=== PATIENT | female | born 1930 | race Caucasian/White ===

== ENCOUNTER 2017-11-16 07:30 | Inpatient (IN) ==
[2017-11-16] MEDS ORDERED: Lido/Epi/Tetra Gel 2 ML SYRINGE TP ONE (08:09)
[2017-11-16] MEDS ORDERED: Bacitracin/Polymyxin B PACKET TP ONE (08:09)
[2017-11-16] MEDS ORDERED: Lidocaine/EPI 1:100k 2% 20 ML VIAL INFILT ONE (08:10)
--- NOTE | 2017-11-16 09:26 | Emergency Department Note ---
Disposition Clinical Impression: Elevated troponin, Bradycardia Concussion without loss of consciousness Qualifiers: Encounter type: initial encounter Qualified Code(s): S06.0X0A - Concussion without loss of consciousness, initial encounter Fall Qualifiers: Encounter type: initial encounter Qualified Code(s): W19.XXXA - Unspecified fall, initial encounter Traumatic hematoma of left knee Qualifiers: Encounter type: initial encounter Qualified Code(s): S80.02XA - Contusion of left knee, initial encounter Scalp hematoma Qualifiers: Encounter type: initial encounter Qualified Code(s): S00.03XA - Contusion of scalp, initial encounter Disposition: Admitted As Inpatient Condition: Fair Referrals: Veto Rosa Jr, MD [Primary Care Provider] - Fall HPI - General Chief Complaint: ED Fall Stated Complaint: fell Time Seen by Provider: 11/16/17 07:47 Source: patient, family, EMS Mode of arrival: EMS Limitations: no limitations Nursing Notes Reviewed: Yes Vital Signs Reviewed: Yes - History of Present Illness HPI Narrative: Patient states that she lost her balance when she missed the first step. This caused her to fall down four steps. She does not remember what hit the ground first, but states that she landed on her right side and dry calls hitting her head on the wall. She denies loss of consciousness, dizziness, vertigo, chest pain, shortness of breath, abdominal pain, neck pain, back pain, paresthesias or weakness in the extremities. She denies changes in vision, epistaxis, nausea , vomiting, recent illness or recent changes in medications. She complains of soreness in the back of her head where she has a laceration. She denies pain anywhere else at this time, but states that her knee is very swollen. Pt Subjective Complaint: fall Onset (ago): Just [employer] Fall From: standing, down stairs (#) (4 per patient) Fall Witnessed: no (Sister states, "I heard her fall but didn't see it." She describes that the patient was lying on the bottom step on her right side with her head against the wall. ) Place Fall Occurred: home Loss of Consciousness: none Prolonged Down Time?: no Symptoms Prior to Fall: none Context: tripped/slipped Location of injury: head Location of injury - extremities: Left: knee Severity: mild Quality: dull Associated symptoms (after fall): Denies: headache, neck pain, numbness, weakness, chest pain, shortness of breath, abdominal pain, unable to walk ("Got up after she fell and then walked to the cot when EMS arrived". Per sister and patient ), lightheaded, vertigo, confusion - Related Data Home Medications Medication Instructions Recorded Confirmed Atorvastatin [Lipitor] 40 mg PO DAILY 11/16/17 11/16/17 Omeprazole [PriLOSEC] 20 mg PO DAILY 11/16/17 11/16/17 Pregabalin [Lyrica] 50 mg PO BID 11/16/17 11/16/17 Allergies Allergy/AdvReac Type Severity Reaction Status Date / Time No Known Allergies Allergy Verified 11/16/17 07:43 All systems ED: reviewed and negative except as stated. Review of Systems: As Per HPI Constitutional: Denies: fever, chills, weakness Eyes: Denies: eye pain, vision change ENT ED: Denies: throat pain, epistaxis, congestion, dysphagia Cardiovascular: Denies: chest pain, palpitations, dyspnea on exertion, orthopnea , edema, syncope Respiratory: Denies: cough, dyspnea, wheezes, hemoptysis, stridor Gastrointestinal: Denies: abdominal pain, nausea, vomiting, diarrhea Genitourinary: Denies: dysuria, hematuria Musculoskeletal: Reports: as per HPI, joint swelling (Left knee). Denies: back pain, neck pain, arthralgia Neurological: Denies: headache, weakness, numbness, paresthesias, confusion, abnormal gait, vertigo Hematological/Lymphatic: Denies: easy bleeding (Patient states, "I am supposed to take an aspirin every day but I do not." She also states that she used to be on blood thinners, but her doctor took her off these last year), easy bruising Fall PMH - Past Medical History Medical history: Reports: cancer (Melanoma on the scalp removed many years ago) , GERD, hyperlipidemia Surgical history: Reports: non-contributory Psychiatric history: Reports: no psych history - Social History Smoking Status: Never smoker Alcohol use: Reports: none Drug use: Reports: none Physical Exam - General Limitations: no limitations General appearance: alert, in no apparent distress - Head Head exam: normocephalic, other - Expanded Head Exam Head exam physicial: Present: laceration, contusion, hematoma. Absent: abrasion , raccoon eyes, Cardoza's sign, tenderness of temporal artery, CSF rhinorrhea, CSF otorrhea - Eye Eye exam: Present: normal appearance, PERRL, EOMI. Absent: scleral icterus, conjunctival injection, nystagmus, miosis, mydriasis, periorbital swelling, periorbital tenderness - ENT ENT exam: mucous membranes moist - Neck Neck exam: Present: normal inspection, trachea midline, tenderness - Expanded Neck Exam Neck exam focused ED: Present: midline tenderness (Mild, mid), paraspinal tenderness ( mild, bilateral). Absent: tenderness (other), tracheal deviation, anterior neck swelling, JVD, carotid bruit - Chest Chest inspection: Present: normal inspection, symmetric chest wall rise. Absent : tenderness - Respiratory Respiratory exam: Present: normal lung sounds bilaterally. Absent: respiratory distress, wheezes, stridor, accessory muscle use, prolonged expiratory phase - Cardiovascular Cardiovascular exam: Present: regular rate, normal rhythm, systolic murmur - Abdominal Exam Abdominal exam: Present: soft, Non-Tender. Absent: distention, guarding, rebound, rigidity, trauma, mass - Extremities Exam Extremities exam: Present: full ROM, tenderness (Mild, left anterior knee), normal capillary refill, joint swelling (Moderate left anterior knee). Absent: pedal edema - Expanded Lower Extremity Exam Hip/Pelvis exam: Present: full ROM (No pain with passive range of motion of hips bilaterally), pelvis stable. Absent: tenderness, deformity, crepitus, external rotation, internal rotation, shortening Upper leg exam: Absent: tenderness Knee exam: Present: normal inspection, full ROM, tenderness (Mild left anterior) , swelling (Moderate left anterior), ecchymosis (Mild to moderate left anterior) , knee extension intact. Absent: deformity, crepitus, dislocation, erythema, effusion, anterior drawer sign, posterior draw sign, pain with valgus, laxity with valgus, pain with varus, laxity with varus Lower leg exam: Present: normal inspection, abrasion (Superficial, 3 cm x 3 mm right mid anterior tibial area). Absent: tenderness, swelling Ankle exam: Present: normal inspection, full ROM, swelling (Mild bilateral symmetric nonpitting). Absent: tenderness Foot/toe exam: Present: normal inspection, full ROM, swelling (Mild bilateral nonpitting symmetric). Absent: tenderness Neurovascular/Tendon exam: Present: normal capillary refill, normal fine/light touch. Absent: pulse deficit, motor deficit, sensory deficit, tendon deficit, extremity cold to touch, pallor, foot drop, significant pain with passive ROM of distal joint Gait: not tested/not observed - Back Exam Back exam: Present: normal inspection. Absent: tenderness, CVA tenderness (R), CVA tenderness (L), paraspinal tenderness, vertebral tenderness - Neurological Exam Neurological exam: Present: alert, CN II-XII intact. Absent: oriented X3 ( Intermittently confused about the year), motor sensory deficit - Psychiatric Psychiatric exam: Present: normal affect, normal mood, other (Very pleasant, conversant, jovial) - Skin Skin exam: Present: warm, dry, intact, normal color Course Course Narrative: Patient fell down four steps when she missed the first step and lost her balance. She had no prodrome of dizziness, vertigo, chest pain, shortness of breath, paresthesias or weakness. She does not have frequent falls. She has had no recent illnesses or changes in medications. She struck the back of her head but did not lose consciousness. She denies headache and has had no vomiting, no change in mental status. Patient has a contusion and hematoma on the vertex of the head and a second hematoma with lac on the left occipital area. The laceration is 2.5cm x 1cm x 0.5cm. There is no active bleeding, no crepitus or step-offs. She has mild tenderness to palpation in these areas. Neck is minimally tender also. She has a large hematoma on the anterior left knee. The knee is stable and she has FAROM. She denies pain in the knee and states, "It's not broke because I walked on it and I can bend it." CT head and cervical spine ordered. Xray of knee ordered. LET, Tylenol and ice pack ordered. - Reevaluation(s) Reevaluation #1: BP improved. Patient resting comfortably. Time: 08:50 Reevaluation #2: Discussed results of scans and xrays with patient. She was feeling better and wanted to ambulate to the restroom again. Nurse assisted patient to bedside commode. When finished, patient had sudden onset of severe left hip pain and trouble getting back into the bed. She became very nauseated and had dry heaves. She was diaphoretic. BP decreased to 111/52 and heart rate 49. Accu check was 114, zofran, IV fluids and EKG ordered. Dr. Ludwig was at bedside during this event. He was preparing to do the FAST U/S. Time: 09:40 Reevaluation #3: Patient had symptomatic resolution within minutes - prior to receiving any meds or fluids. Accu check normal. EKG shows sinus bradycardia with T wave inversions anteriorly. We do not have an old EKG for comparison. CTA Chest and CTA Abd/Pelvis ordered. FAST exam normal. Patient has no complaints at this time. Still able to move hips passively without eliciting any pain. Time: 10:33 Additional Reevaluation(s): Patient's CTA Chest, Abd/ Pelvis all normal per radiologist with the exception of coarse pelvic calcifications and a splenic cyst or hemangioma. CT of the hip shows osteopenia with no fracture. Patient denies chest pain, pressure, tightness, heaviness, dyspnea, arm pain, paraesthesias. She denies known hx of CAD. Her troponin is elevated and she has twave inversions on her EKG. We have no old EKG for comparison. This coupled with the patient's episode of nausea / vomiting, diaphoresis and transient pain in the absence of hip injury or other abnormal findings on CT warrant admission. Hospitalist paged. Patient accepted for admission. NO ASPIRIN GIVEN DUE TO PATIENT'S TRAUMA THIS MORNING WITH HEAD INJURY AND LARGE KNEE HEMATOMA. Plan to hold aspirin discussed with the hospitalist and attending. They are in agreement. Vital Signs Temperature 97.9 F 11/16/17 07:31 Pulse Rate 63 11/16/17 07:31 Respiratory Rate 18 11/16/17 07:31 Blood Pressure 162/77 11/16/17 07:31 O2 Sat by Pulse Oximetry 99 11/16/17 07:31 Temperature 97.9 F 11/16/17 07:31 Pulse Rate 63 11/16/17 07:31 Respiratory Rate 18 11/16/17 07:31 Blood Pressure 162/77 11/16/17 07:31 O2 Sat by Pulse Oximetry 99 11/16/17 07:31 Oxygen Delivery Oxygen Delivery Room Air Procedures - Laceration Laceration 1 Site: scalp Side (If applicable): left Description: linear Depth: simple, single layer Local Anesthetic: lidocaine 1%, with epi, other anesthetic (LET) Amount of Anesthesia Used (mL): 3 Pre-repair: wound explored, irrigated extensively, deep structures intact (No FB , no palpable fracture or step off, 1cm lac of galeal membrane, no active bleeding) Skin layer closed with: lenny Number of sutures/lenny: 6 Fall - Medical Records Medical records reviewed: Yes I reviewed the patient's medical records. - Lab Data Lab results reviewed: Yes I reviewed the patient's lab results. Lab results narrative: Laboratory Last Values WBC 11.7 K/mcL (4.3-11.1) H 11/16/17 10:20 RBC 3.28 M/mcL (3.82-4.97) L 11/16/17 10:20 Hgb 10.8 g/dL (11.5-15.4) L 11/16/17 10:20 Hct 33.0 % (35.3-44.9) L 11/16/17 10:20 MCV 100.6 fL (83.0-100.0) H 11/16/17 10:20 MCH 32.9 pg (28.0-33.3) 11/16/17 10:20 MCHC 32.7 g/dL (31.6-35.5) 11/16/17 10:20 RDW 13.4 % (11.5-14.5) 11/16/17 10:20 Plt Count 179 K/mcL (140-400) 11/16/17 10:20 MPV 11.4 fL (9.4-12.4) 11/16/17 10:20 Immature Gran % 0.4 % (0-4) 11/16/17 10:20 Seg Neutrophils % 79.6 % 11/16/17 10:20 Lymphocytes % 12.8 % 11/16/17 10:20 Monocytes % 6.7 % 11/16/17 10:20 Eosinophils % 0.2 % 11/16/17 10:20 Basophils % 0.3 % 11/16/17 10:20 Neutrophils # 9.3 K/mcL (1.6-8.9) H 11/16/17 10:20 Lymphocytes # 1.5 K/mcL (0.6-4.6) 11/16/17 10:20 Monocytes # 0.8 K/mcL (0.0-1.3) 11/16/17 10:20 Eosinophils # 0.0 K/mcL (0.0-0.6) 11/16/17 10:20 Basophils # 0.0 K/mcL (0.0-0.2) 11/16/17 10:20 PT 11.2 Seconds (9.4-12.1) 11/16/17 10:20 INR 1.0 11/16/17 10:20 APTT 33.6 Seconds (26.0-36.0) 11/16/17 10:20 POC Glucose 114 mg/dL (70-99) H 11/16/17 09:41 Urine Color Yellow (Yellow) 11/16/17 10:09 Urine Clarity Clear (Clear) 11/16/17 10:09 Urine pH 6.0 pH Units (5.0-8.0) 11/16/17 10:09 Ur Specific Nahma 1.014 (1.010-1.025) 11/16/17 10:09 Urine Protein Negative mg/dL (Neg-Trace) 11/16/17 10:09 Urine Glucose (UA) Normal mg/dL (Normal) 11/16/17 10:09 Urine Ketones Negative mg/dL (Negative) 11/16/17 10:09 Urine Blood Negative (Negative) 11/16/17 10:09 Urine Nitrite Negative (Negative) 11/16/17 10:09 Urine Bilirubin Negative (Negative) 11/16/17 10:09 Urine Urobilinogen Normal mg/dL (Normal) 11/16/17 10:09 Ur Leukocyte Esterase Negative (Negative) 11/16/17 10:09 Ur Culture Indicated? NO (NO) 11/16/17 10:09 - Radiology Data Radiology results reviewed: Yes I reviewed the patient's radiology results. - EKG Data EKG attestation: Yes I reviewed and interpreted this EKG. EKG shows normal: sinus rhythm Rate: bradycardia Rhythm: NSR T wave inversions noted in: v1, v2, v3, v4 When compared to previous EKG there are: previous EKG unavailable Interpretation: nonspecific ST-T wave changes
[2017-11-16] MEDS ORDERED: Ondansetron ODT 4 MG TAB.RAPDIS SL ONE (09:39)
[2017-11-16] MEDS ORDERED: 0.9 % Sodium Chloride 1,000 ML IVC ONE (09:39)
[2017-11-16] MEDS ORDERED: Isovue-370 500 ML INFUS..BTL IV ONE (09:56)
[2017-11-16 10:37] LABS: Basophils % 0.3 %; Eosinophils % 0.2 %; Hemoglobin 10.8 g/dL (11.5-15.4); Immature Granulocytes % 0.4 % (0-4); Lymphocytes # 1.5 K/mcL (0.6-4.6); Lymphocytes % 12.8 %; Mean Corpuscular HGB Conc 32.7 g/dL (31.6-35.5); Mean Corpuscular Hemoglobin 32.9 pg (28.0-33.3); Mean Corpuscular Volume 100.6 fL (83.0-100.0); Mean Platelet Volume 11.4 fL (9.4-12.4); Monocytes # 0.8 K/mcL (0.0-1.3); Monocytes % 6.7 %; Neutrophils # 9.3 K/mcL (1.6-8.9); Platelet Count 179 K/mcL (140-400); Red Blood Count 3.28 M/mcL (3.82-4.97); Red Cell Distribution Width 13.4 % (11.5-14.5); Segmented Neutrophils % 79.6 %
[2017-11-16 10:42] LABS: Prothrombin Time 11.2 Seconds (9.4-12.1)
[2017-11-16 10:44] LABS: Activated Partial Thrombo Time 33.6 Seconds (26.0-36.0)
[2017-11-16 10:49] LABS: Bilirubin,Urine Negative (Negative); Blood,Urine Negative (Negative); Clarity,Urine Clear (Clear); Color,Urine Yellow (Yellow); Glucose,Urine (UA) Normal (Normal); Ketones,Urine Negative (Negative); Leukocyte Esterase,Urine Negative (Negative); Nitrite,Urine Negative (Negative); Protein,Urine Negative (Neg-Trace); Specific Gravity,Urine 1.014 (1.010-1.025); Urobilinogen,Urine Normal (Normal)
--- NOTE | 2017-11-16 11:25 | Emergency Department Note ---
Disposition Clinical Impression: Elevated troponin Fall Qualifiers: Encounter type: initial encounter Qualified Code(s): W19.XXXA - Unspecified fall, initial encounter Disposition: Still a Patient Condition: Fair Referrals: Veto Rosa Jr, MD [Primary Care Provider] - Forms: ED Satisfaction Letter General Adult HPI - General Chief complaint: ED Fall Stated complaint: fell Time Seen by Provider: 11/16/17 07:47 Source: patient, family, EMS Mode of arrival: EMS Limitations: no limitations Nursing Notes Reviewed: Yes Vital Signs Reviewed: Yes - History of Present Illness Pain Scale: 1 - Related Data Home Medications Medication Instructions Recorded Confirmed Atorvastatin [Lipitor] 40 mg PO DAILY 11/16/17 11/16/17 Omeprazole [PriLOSEC] 20 mg PO DAILY 11/16/17 11/16/17 Pregabalin [Lyrica] 50 mg PO BID 11/16/17 11/16/17 Allergies Allergy/AdvReac Type Severity Reaction Status Date / Time No Known Allergies Allergy Verified 11/16/17 07:43 Constitutional: Denies: fever, chills, weakness Eyes: Denies: eye pain, vision change ENT ED: Denies: throat pain, epistaxis, congestion, dysphagia Cardiovascular: Denies: chest pain, palpitations, dyspnea on exertion, orthopnea , edema, syncope Respiratory: Denies: cough, dyspnea, wheezes, hemoptysis, stridor Gastrointestinal: Denies: abdominal pain, nausea, vomiting, diarrhea Genitourinary: Denies: dysuria, hematuria Musculoskeletal: Reports: as per HPI, joint swelling (Left knee). Denies: back pain, neck pain, arthralgia Neurological: Denies: headache, weakness, numbness, paresthesias, confusion, abnormal gait, vertigo Hematological/Lymphatic: Denies: easy bleeding (Patient states, "I am supposed to take an aspirin every day but I do not." She also states that she used to be on blood thinners, but her doctor took her off these last year), easy bruising Past Medical History - Past Medical History Medical history: Reports: cancer (Melanoma on the scalp removed many years ago) , GERD, hyperlipidemia Surgical history: Reports: non-contributory Psychiatric history: Reports: no psych history - Social History Smoking Status: Never smoker Smokeless Tobacco Status: No Alcohol use: Reports: none Drug use: Reports: none Physical Exam - General Limitations: no limitations General appearance: alert, in no apparent distress Course Vital Signs Temperature 97.9 F 11/16/17 07:31 Pulse Rate 63 11/16/17 07:31 Respiratory Rate 18 11/16/17 07:31 Blood Pressure 162/77 11/16/17 07:31 O2 Sat by Pulse Oximetry 99 11/16/17 07:31 Temperature 97.9 F 11/16/17 07:31 Pulse Rate 50 11/16/17 10:00 Respiratory Rate 17 11/16/17 10:00 Blood Pressure 116/57 11/16/17 10:00 O2 Sat by Pulse Oximetry 99 11/16/17 10:00 Oxygen Delivery Oxygen Delivery Room Air Medical Decision Making - Lab Data Result diagrams: 11/16/17 10:20 Lab Results 11/16/17 11/16/17 11/16/17 Range/Units 09:41 10:09 10:20 WBC 11.7 H (4.3-11.1) K/mcL RBC 3.28 L (3.82-4.97) M/mcL Hgb 10.8 L (11.5-15.4) g/dL Hct 33.0 L (35.3-44.9) % MCV 100.6 H (83.0-100.0) fL MCH 32.9 (28.0-33.3) pg MCHC 32.7 (31.6-35.5) g/dL RDW 13.4 (11.5-14.5) % Plt Count 179 (140-400) K/mcL MPV 11.4 (9.4-12.4) fL Immature Gran % 0.4 (0-4) % Seg Neutrophils % 79.6 % Lymphocytes % 12.8 % Monocytes % 6.7 % Eosinophils % 0.2 % Basophils % 0.3 % Neutrophils # 9.3 H (1.6-8.9) K/mcL Lymphocytes # 1.5 (0.6-4.6) K/mcL Monocytes # 0.8 (0.0-1.3) K/mcL Eosinophils # 0.0 (0.0-0.6) K/mcL Basophils # 0.0 (0.0-0.2) K/mcL PT (9.4-12.1) Seconds INR APTT (26.0-36.0) Seconds POC Glucose 114 H (70-99) mg/dL Troponin I (< 0.04) ng/mL Urine Color Yellow (Yellow) Urine Clarity Clear (Clear) Urine pH 6.0 (5.0-8.0) pH Units Ur Specific Howes 1.014 (1.010-1.025) Urine Protein Negative (Neg-Trace) mg/dL Urine Glucose (UA) Normal (Normal) mg/dL Urine Ketones Negative (Negative) mg/dL Urine Blood Negative (Negative) Urine Nitrite Negative (Negative) Urine Bilirubin Negative (Negative) Urine Urobilinogen Normal (Normal) mg/dL Ur Leukocyte Esterase Negative (Negative) Ur Culture Indicated? NO (NO) Blood Type Antibody Screen 11/16/17 11/16/17 11/16/17 Range/Units 10:20 10:20 10:20 WBC (4.3-11.1) K/mcL RBC (3.82-4.97) M/mcL Hgb (11.5-15.4) g/dL Hct (35.3-44.9) % MCV (83.0-100.0) fL MCH (28.0-33.3) pg MCHC (31.6-35.5) g/dL RDW (11.5-14.5) % Plt Count (140-400) K/mcL MPV (9.4-12.4) fL Immature Gran % (0-4) % Seg Neutrophils % % Lymphocytes % % Monocytes % % Eosinophils % % Basophils % % Neutrophils # (1.6-8.9) K/mcL Lymphocytes # (0.6-4.6) K/mcL Monocytes # (0.0-1.3) K/mcL Eosinophils # (0.0-0.6) K/mcL Basophils # (0.0-0.2) K/mcL PT 11.2 (9.4-12.1) Seconds INR 1.0 APTT 33.6 (26.0-36.0) Seconds POC Glucose (70-99) mg/dL Troponin I 0.05 H* (< 0.04) ng/mL Urine Color (Yellow) Urine Clarity (Clear) Urine pH (5.0-8.0) pH Units Ur Specific Howes (1.010-1.025) Urine Protein (Neg-Trace) mg/dL Urine Glucose (UA) (Normal) mg/dL Urine Ketones (Negative) mg/dL Urine Blood (Negative) Urine Nitrite (Negative) Urine Bilirubin (Negative) Urine Urobilinogen (Normal) mg/dL Ur Leukocyte Esterase (Negative) Ur Culture Indicated? (NO) Blood Type B POSITIVE Antibody Screen NEGATIVE Attestation Statement - Attestation Attestation: I, Rob Ludwig, examined this patient and my medical decision-making was reviewed with the LUMP ROLLER/PA/Advanced Practice Nurse/Resident Physician. I agree with the documented findings, disposition and treatment plan as described except to the extent set forth below. 87-year-old female presents emergency Department with concerns of evaluation after fall. Patient states she slipped and missed the first step as she was going down the stairs, she fell about 4 stairs. She struck her head and her left knee. Patient has laceration to the occiput and significant contusion with swelling and ecchymosis to the left anterior knee. Patient pain was well controlled in the emergency Department with IV pain medication. She denies chest pain or shortness of breath. During the evaluation the patient started to vomit, this occurred after the patient tried to ambulate to the bathroom. Patient became bradycardic to a rate of 48. Laboratory evaluation was obtained in addition to a CTA of the chest abdomen pelvis for further evaluation of trauma. Imaging and laboratory results and disposition are pending at this time.
[2017-11-16 11:33] LABS: Alanine Aminotransferase 12 Units/L (7-52); Albumin 3.5 g/dL (3.5-5.7); Albumin/Globulin Ratio 1.6 (1.1-2.2); Alkaline Phosphatase 76 Units/L (34-104); Aspartate Amino Transferase 14 Units/L (13-39); BUN/Creatinine Ratio 23 (6-26); Bilirubin,Total 0.6 mg/dL (0.3-1.0); Blood Urea Nitrogen 18 mg/dL (8-23); Calcium 8.7 mg/dL (8.6-10.3); Carbon Dioxide 28 mEq/L (23-29); Chloride 109 mEq/L (98-107); Globulin 2.2 g/dL (2.4-3.5); Glucose 118 mg/dL (70-105); Osmolality,Calculated 297 (280-300); Sodium 142 mEq/L (136-145); Total Protein 5.7 g/dL (6.4-8.9); eGFR For African Americans > 60 (> 60); eGFR For Non-African Americans > 60 (> 60)
[2017-11-16 11:34] LABS: Potassium 3.7 mEq/L (3.5-5.1)
[2017-11-16] MEDS ORDERED: Naloxone 0.4 MG/ML INJ IVP PRN (13:53)
[2017-11-16] MEDS ORDERED: *HR* HYDROcodone/Acet 5/325 mg TABLET PO PRN (13:53)
--- NOTE | 2017-11-16 14:12 | Internal Med History&Physical ---
<Jean CarlosMiguel Nevarez - Last Filed: 11/16/17 14:44> Date of Encounter: 11/16/17 Time of Encounter: 13:00 Internal Medicine - H&P: HPI Chief complaint: Fall Admitted From: Emergency Dept Plans for Post Hospital Care: Home History of present illness: Ms. Fischer is a 87 year old female w/PMH of melanoma, GERD, and HLD presents from the ED w/CC of fall that occurred this morning. Pt. states she was coming down stairs and lost her footing and fell down four stairs striking the occipital portion of her head and her left knee. Occiput has laceration and ecchymosis and edema to left knee. Pt. denies becoming syncopal or hx of falls. Reports nausea in ED. Patient denies recent illness, fever, chills, vomiting, changes in vision, headache, CP, SOB, abdominal pain, diarrhea, constipation, dizziness, lightheadedness, numbness, tingling, unusual bleeding, pre-syncope, or syncope. Past Med Surg Social Fam HX - Past Medical History Source: patient, old records reviewed, obtained from family Medical history: cancer (Melanoma on the scalp removed many years ago), GERD, hyperlipidemia Psychiatric history: no psych history - Past Surgical History Surgical History: cancer surgery (Skin cancer surgery) - Social History Smoking Status: Never smoker Smokeless Tobacco Status: No Alcohol use: none Drug use: none Current living situation: Home, With Family Activity Level: Independent ambulation Recent Out of Country Travel Within the Last 8 Weeks: No Exposure or Possible Exposure to Illness During Travel: No - Family History Father Race: Family Member Ethnicity: Non- Living Status: Age at : 88 Cause of : Alzheimer's disease Hx Family Neurologic Disorders: Yes (Alzheimer's disease) Mother Race: Family Member Ethnicity: Non- Living Status: Age at : 95 Cause of : CHF Hx Family Cardiac Disorders: Yes (CHF) Brother Race: Family Member Ethnicity: Non- Living Status: Age at : 69 Cause of : Pancreatic cancer Hx Family Cancer: Yes (Pancreatic) Sister Race: Family Member Ethnicity: Non- Living Status: Still Living Hx Family Cardiac Disorders: Yes (HLD) Hx Family Cancer: Yes (Melanoma) Internal Medicine - H&P: Meds Atorvastatin [Lipitor] 40 mg PO DAILY 11/16/17 [History] Omeprazole [PriLOSEC] 20 mg PO DAILY 11/16/17 [History] Pregabalin [Lyrica] 50 mg PO BID 11/16/17 [History] 3 Allergy/AdvReac Type Severity Reaction Status Date / Time No Known Allergies Allergy Verified 11/16/17 07:43 All Systems PM: A 10-system review of systems was performed and is negative for pertinent findings except as documented above in the HPI. - Constitutional Constitutional: as per HPI, no chills, no fever(s), no night sweats - EENT Eyes: no change in vision, no discharge, no pain, no photophobia Ears: no ear discharge, no ear pain, no tinnitus Nose, mouth and throat: no dysphagia, no nasal discharge, no neck pain, no sore throat - Breasts Breasts: as per HPI - Cardiovascular Cardiovascular ROS IM: as per HPI, irregular heart rhythm (Bradycardia), no chest pain, no diaphoresis, no dyspnea, no lightheadedness, no palpitations, no syncope - Respiratory Respiratory: no cough, no dyspnea, no wheezing, no excessive phlegm production - Gastrointestinal Gastrointestinal: no abdominal pain, no diarrhea, no hematemesis, no hematochezia, no melena, no nausea, no vomiting - Genitourinary Genitourinary: no change in urinary stream, no dysuria, no flank pain, no hematuria Menstruation: as per HPI - Musculoskeletal Musculoskeletal ROS IM: no numbness, no tingling - Integumentary Integumentary IM: as per HPI, erythema (Left knee and occipitus d/t fall), sores (Left knee and occipitus d/t fall), no rash, no unusual bruising - Neurological Neurological ROS: no confusion, no convulsions, no focal weakness, no numbness, no tingling, no tremor(s) - Psychiatric Psychiatric: as per HPI - Endocrine Endocrine IM: as per HPI - Hematologic/Lymphatic Hematologic/Lymphatic: no easy bruising - Allergic/Immunologic Allergic/Immunologic: as per HPI - Constitutional Vitals: Temp Pulse Resp BP Pulse Ox 98.2 F 45 16 106/52 99 11/16/17 13:55 11/16/17 11:30 11/16/17 13:55 11/16/17 13:55 11/16/17 11:30 General appearance: Present: cooperative, A&O X 3, pleasant, no acute distress, answers questions appropriately - Head Additional comments: Laceration to occipitus d/t fall. - Eye Eye exam: Present: PERRL, conjuntiva pink, sclera anicteric Pupils: Present: PERRL - ENT ENT exam: Present: normal exam - Neck Neck exam general surgery: Present: normal inspection, supple, trachea midline. Absent: lymphadenopathy - Respiratory Respiratory exam: Present: CTAB. Absent: accessory muscle use, rales, rhonchi, wheezes - Cardiovascular Cardiovascular exam: Present: bradycardia - GI/Abdominal GI/Abdominal exam: Present: normal bowel sounds, soft, no peritoneal signs. Absent: distended, tenderness - Rectal Rectal exam: Present: deferred - Additional comments: exam deferred. - Extremities Exam Extremities exam: Present: warm, radial pulses palpable and symmetrical. Absent : calf tenderness, cyanotic, pedal edema - Back Exam Back exam: Present: normal inspection - Neurological Exam Neurological exam: Present: alert, CN II-XII intact, oriented X3, no focal deficits. Absent: pronater drift, facial droop, speech deficit - Psychiatric Psychiatric exam: Present: normal affect, normal mood - Skin Skin exam: Present: dry, intact Internal Med - H&P Results - Labs CBC & Chem 7: 11/16/17 10:20 11/16/17 10:20 - EKG Data EKG shows normal: sinus rhythm Rate: bradycardia - EKG Data Prior EKG available for review: no Interpretation IM: suggestive of ischemia EKG comments: 11/16/17 14:19 EKG dated 11/16/17 shows sinus bradycardia with moderate T-wave abnormality. Consider anterior ischemia. - Diagnostic Studies Other Images Additional comments: Impressions Cervical Spine CT 11/16/17 08:10 IMPRESSION: 1. No acute fracture or subluxation of the cervical spine. 2. Mild multilevel degenerative disc disease, as detailed above. D/ / 11/16/2017 09:29:19 Reece Johnson MD / [facility] Interpreting Provider: Reece Johnson MD Knee X-Ray 11/16/17 08:10 IMPRESSION: Severe anterior soft tissue swelling of the left knee without acute osseous abnormality. D/ / 11/16/2017 09:25:20 Reece Johnson MD / [facility] Interpreting Provider: Reece Johnson MD Hip/Pelvis X-Ray 11/16/17 09:43 IMPRESSION: No acute fracture or dislocation. D/ / 11/16/2017 10:47:46 Gabriel Ray MD / [facility] Interpreting Provider: Gabriel Ray MD Abdomen/Pelvis CTA 11/16/17 09:56 IMPRESSION: 1. No acute solid organ or vascular injury. 2. Splenic cyst or hemangioma. 3. 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 This can be further assessed by means of ultrasound imaging. D/ / 11/16/2017 12:38:18 Gabriel Ray MD / [facility] Interpreting Provider: Gabriel Ray MD Chest CTA 11/16/17 09:56 IMPRESSION: No acute intrathoracic abnormality. D/ / Gabriel Ray MD / Gabriel Ray MD Interpreting Provider: Gabriel Ray MD Hip CT 11/16/17 11:01 IMPRESSION: Osteopenia with no acute osseous abnormality. D/ / 11/16/2017 12:44:29 Gabriel Ray MD / [facility] Interpreting Provider: Gabriel Ray MD CT scan - head Additional comments: Impressions Head CT 11/16/17 08:10 IMPRESSION: No acute intracranial abnormality. Focal soft tissue defect in left posterior scalp likely an area of laceration with a small scalp hematoma more superiorly near the vertex. D/ / 11/16/2017 09:27:03 Kim George MD / [facility] Interpreting Provider: Kim George MD - Assessment and plan (1) Fall Current Visit: Yes Status: Acute Assessment and plan: Acute fall down four stairs today. Denies syncope, pre-syncope, dizziness, or previous hx of falls. States she lost footing and fell down remaining four steps. Struck head and left knee. Pt. is currently bradycardic. Continuous cardiac telemetry. Assess neurologic status Q2HR. Echocardiogram. Bilateral carotid Dopplers. Imaging unremarkable for fxs or abnormalities w/exception of hematomas of the left knee and head. Wound Care consult and daily wound care ordered. Ice pack PRN. PT/OT consult. Falls/safety precautions, up with assist, bed rest w/bathroom privileges w/assist only. Pt. discussed w/Dr. Rob who agrees w/plan of care. Pt. is moderate risk for further morbidity based on current troponin, hematomas of the head and left knee, bradycardia, leukocytosis of unknown etiology, hx, and risk factors. Observation. Qualifiers: Encounter type: initial encounter Qualified Code(s): W19.XXXA - Unspecified fall, initial encounter (2) Scalp hematoma Current Visit: Yes Status: Acute Assessment and plan: Acute hematoma of the scalp. CT of the head today shows no acute intracranial abnormality. Focal soft tissue defect in the left posterior scalp likely an area of laceration with a small scalp hematoma more superiorly near the vertex. SCDs for DVT prophylaxis. Wound Care consult and daily wound care ordered. Monitor pt. for neurologic changes and assess neuro status Q2HR. Qualifiers: Encounter type: initial encounter Qualified Code(s): S00.03XA - Contusion of scalp, initial encounter (3) Traumatic hematoma of left knee Current Visit: Yes Status: Acute Assessment and plan: Acute traumatic hematoma left knee. Imaging is unremarkable. Wound Care consult and daily wound care ordered. Qualifiers: Encounter type: initial encounter Qualified Code(s): S80.02XA - Contusion of left knee, initial encounter (4) Bradycardia Current Visit: Yes Status: Acute Assessment and plan: Acute bradycardia w/HR of 45-53 on admission. Pt. takes 50 mg of Lyrica BID daily which can cause bradycardia in some pts. Dosing reduced to 25 mg BID while inpt. Continuous cardiac telemetry. Echocardiogram. (5) Elevated troponin Current Visit: Yes Status: Acute Assessment and plan: Acutely elevated troponin of 0.05 on admission. Pt. denies CP or cardiac sx. Will trend. Echocardiogram. Continuous cardiac telemetry. EKG today shows sinus bradycardia with moderate T-wave abnormality. Consider anterior ischemia. (6) Anemia Current Visit: Yes Status: Acute Assessment and plan: Acute anemia w/Hgb of 10.8 and Hct of 33.0 on admission. No hx to trend. Pt. denies unusual bleeding. Will monitor H/H in f/u labs. Qualifiers: Anemia type: unspecified type Qualified Code(s): D64.9 - Anemia, unspecified (7) Leukocytosis Current Visit: Yes Status: Acute Assessment and plan: Acute leukocytosis w/WBC of 11.7 on admission. Likely reactive. Pt. denies recent illness, F/C/N/V. Asymptomatic and afebrile. Will monitor f/u labs and pt. for signs of infection. Qualifiers: Leukocytosis type: unspecified Qualified Code(s): D72.829 - Elevated white blood cell count, unspecified (8) HLD (hyperlipidemia) Current Visit: Yes Status: Chronic Assessment and plan: Hx of chronic HLD. Lipid panel in a.m. labs. Continue pts. Lipitor. Qualifiers: Hyperlipidemia type: pure hypercholesterolemia Qualified Code(s): E78.00 - Pure hypercholesterolemia, unspecified; E78.0 - Pure hypercholesterolemia (9) GERD (gastroesophageal reflux disease) Current Visit: Yes Status: Chronic Assessment and plan: Hx of chronic GERD. IVP Zofran 4 mg Q6HR PRN for N/V. Continue pts. PO Prilosec. 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 Pt. to f/u w/provider w/scheduled appt. OP. Qualifiers: Melanoma location: face excluding eyelid, nose, lip, and ear Qualified Code (s): C43.30 - Malignant melanoma of unspecified part of face (11) DVT prophylaxis Current Visit: Yes Status: Acute Assessment and plan: Bilateral SCDs on LEs for DVT prophylaxis d/t current hematomas of scalp and left knee from fall. - Time Spent With Patient Total time spent is greater than 50% in coordination of care (as documented) at patient's floor/unit and/or counseling patient: Greater than 35 minutes <Roberto Rob - Last Filed: 11/16/17 15:22> Date of Encounter: 11/16/17 Internal Medicine - H&P: HPI History of present illness: Ms. Fischer is a 87 year old female All Systems PM: A 10-system review of systems was performed and is negative for pertinent findings except as documented above in the HPI. - Constitutional Vitals: Temp Pulse Resp BP Pulse Ox 97.7 F 53 16 101/64 97 11/16/17 14:32 11/16/17 14:32 11/16/17 14:32 11/16/17 14:32 11/16/17 14:58 Internal Med - H&P Results - Labs CBC & Chem 7: 11/16/17 10:20 11/16/17 10:20 - Attending Attestation I saw and examined this patient independently, and my medical decision making was reviewed with the [employer]IVER/PA on 2017. I agree with the documented findings , assessment and treatment plan as described in the H&P. - Time Spent With Patient Total time spent is greater than 50% in coordination of care (as documented) at patient's floor/unit and/or counseling patient:
[2017-11-16] MEDS ORDERED: Ondansetron 4 MG/2 ML VIAL IVP PRN (14:25)
[2017-11-16] MEDS: Acetaminophen 325 MG TABLET PO PRN (21:47)
[2017-11-16] MEDS: Pregabalin 25 MG CAPSULE PO SCH (21:47)
[2017-11-17 05:02] LABS: Basophils % 0.3 %; Eosinophils % 0.7 %; Immature Granulocytes % 0.5 % (0-4); Lymphocytes # 1.3 K/mcL (0.6-4.6); Lymphocytes % 22.5 %; Mean Corpuscular HGB Conc 33.1 g/dL (31.6-35.5); Mean Corpuscular Hemoglobin 33.2 pg (28.0-33.3); Mean Corpuscular Volume 100.4 fL (83.0-100.0); Mean Platelet Volume 11.9 fL (9.4-12.4); Monocytes # 0.6 K/mcL (0.0-1.3); Monocytes % 9.8 %; Neutrophils # 3.8 K/mcL (1.6-8.9); Platelet Count 148 K/mcL (140-400); Red Blood Count 2.59 M/mcL (3.82-4.97); Red Cell Distribution Width 13.7 % (11.5-14.5); Segmented Neutrophils % 66.2 %
[2017-11-17 05:03] LABS: Hemoglobin 8.6 g/dL (11.5-15.4)
[2017-11-17 05:27] LABS: Alanine Aminotransferase 11 Units/L (7-52); Albumin 3.3 g/dL (3.5-5.7); Albumin/Globulin Ratio 1.8 (1.1-2.2); Alkaline Phosphatase 66 Units/L (34-104); Aspartate Amino Transferase 13 Units/L (13-39); BUN/Creatinine Ratio 30 (6-26); Bilirubin,Total 0.6 mg/dL (0.3-1.0); Blood Urea Nitrogen 19 mg/dL (8-23); Calcium 8.5 mg/dL (8.6-10.3); Carbon Dioxide 24 mEq/L (23-29); Chloride 111 mEq/L (98-107); Chol/HDL Ratio 3.2 (0-4.9); Cholesterol 120 mg/dL (< 200); Globulin 1.8 g/dL (2.4-3.5); Glucose 117 mg/dL (70-105); HDL Cholesterol 38 mg/dL (40-59); LDL Cholesterol,Calculated 70 mg/dL (0-99); Osmolality,Calculated 293 (280-300); Potassium 3.8 mEq/L (3.5-5.1); Sodium 140 mEq/L (136-145); Total Protein 5.1 g/dL (6.4-8.9); Triglycerides 61 mg/dL (< 150); eGFR For African Americans > 60 (> 60); eGFR For Non-African Americans > 60 (> 60)
[2017-11-17 08:07] LABS: Estimated Average Glucose 108 mg/dl; Hemoglobin A1C 5.4 %
--- NOTE | 2017-11-17 08:55 | Internal Med Progress Note ---
Date of Encounter: 11/17/17 Time of Encounter: 08:55 - Assessment and plan (1) Fall Current Visit: Yes Status: Acute Assessment and plan: s/p mechanical fall; supportive care; PT/OT evaluation; Qualifiers: Encounter type: initial encounter Qualified Code(s): W19.XXXA - Unspecified fall, initial encounter (2) Elevated troponin Current Visit: Yes Status: Acute Assessment and plan: likely demand ischemia; bradycardia improved. Serum Troponins normalized; f/up Echo; (3) Traumatic hematoma of left knee Current Visit: Yes Status: Acute Assessment and plan: subcutaneous hematoma; knee joint not affected; supportive care; PT/OT evaluation; pain control with Tylenol and Hydrocodone PO; Qualifiers: Encounter type: initial encounter Qualified Code(s): S80.02XA - Contusion of left knee, initial encounter (4) Scalp hematoma Current Visit: Yes Status: Acute Assessment and plan: received lenny in ER; supportive care; Qualifiers: Encounter type: initial encounter Qualified Code(s): S00.03XA - Contusion of scalp, initial encounter (5) Bradycardia Current Visit: Yes Status: Acute Assessment and plan: resolved; dose of Lyrica has been decreased to 25mg BID; continue Telemetry monitoring; (6) HLD (hyperlipidemia) Current Visit: Yes Status: Chronic Qualifiers: Hyperlipidemia type: unspecified Qualified Code(s): E78.5 - Hyperlipidemia , unspecified (7) GERD (gastroesophageal reflux disease) Current Visit: Yes Status: Chronic Qualifiers: Esophagitis presence: esophagitis presence not specified Qualified Code(s) : K21.9 - Gastro-esophageal reflux disease without esophagitis (8) Melanoma Current Visit: Yes Status: Chronic Qualifiers: Melanoma location: face excluding eyelid, nose, lip, and ear Qualified Code (s): C43.30 - Malignant melanoma of unspecified part of face (9) Anemia Current Visit: Yes Status: Chronic Assessment and plan: baseline Hb not available; drop in Hb noted today but could be dilutional; continue to monitor; Qualifiers: Anemia type: unspecified type Qualified Code(s): D64.9 - Anemia, unspecified (10) Leukocytosis Current Visit: Yes Status: Resolved Qualifiers: Leukocytosis type: unspecified Qualified Code(s): D72.829 - Elevated white blood cell count, unspecified - Time Spent With Patient Total time spent is greater than 50% in coordination of care (as documented) at patient's floor/unit and/or counseling patient: - Subjective Interval history: Reports feeling better; requests Tylenol for "sinus problems"; no chest pain, dyspnea, cough; improving left knee pain and swelling; posterior scalp no pain or bleeding; - Constitutional Vitals: Temp Pulse Resp BP Pulse Ox 97.9 F 54 16 108/69 96 11/17/17 07:27 11/17/17 07:27 11/17/17 07:27 11/17/17 07:27 11/17/17 07:27 General appearance: Present: cooperative, A&O X 3, pleasant, answers questions appropriately - Head Head exam: Present: atraumatic (posterior scalp laceration with intact lenny) , normocephalic - Respiratory Respiratory exam: Present: CTAB. Absent: accessory muscle use, rales, rhonchi, wheezes - Cardiovascular Cardiovascular exam: Present: RRR, +S1, +S2. Absent: diastolic murmur, gallop, rubs, systolic murmur - GI/Abdominal GI/Abdominal exam: Present: normal bowel sounds, soft, no peritoneal signs. Absent: distended, tenderness - Extremities Exam Extremities exam: Present: warm, radial pulses palpable and symmetrical. Absent : calf tenderness, cyanotic, pedal edema Additional comments: left knee with anterior soft tissue hematoma and ecchymoses, improving swelling , nontender - Neurological Exam Neurological exam: Present: CN II-XII intact, oriented X3, no focal deficits. Absent: pronater drift, facial droop, speech deficit Internal Medicine: Result - Labs CBC & Chem 7: 11/17/17 04:41 11/17/17 04:41 Labs: Short CBC 11/17/17 Range/Units 04:41 WBC 5.8 D (4.3-11.1) K/mcL Hgb 8.6 L D (11.5-15.4) g/dL Hct 26.0 L (35.3-44.9) % Plt Count 148 (140-400) K/mcL Neutrophils # 3.8 (1.6-8.9) K/mcL BMP 11/17/17 04:41 Sodium 140 Potassium 3.8 Chloride 111 H Carbon Dioxide 24 BUN 19 Creatinine 0.63 Glucose 117 H Calcium 8.5 L Cardiac Enzymes 11/16/17 11/16/17 Range/Units 16:07 21:54 Troponin I 0.04 H* 0.03 (< 0.04) ng/mL Liver Function 11/17/17 Range/Units 04:41 Total Bilirubin 0.6 (0.3-1.0) mg/dL AST 13 (13-39) Units/L ALT 11 (7-52) Units/L Alkaline Phosphatase 66 (34-104) Units/L Albumin 3.3 L (3.5-5.7) g/dL - ABG Interpretation ABG results: PT/INR, D-dimer PT 11.2 Seconds (9.4-12.1) 11/16/17 10:20 - VTE Documentation of Mechanical Device: Intermittent pneumatic compression device Consult Discharge Plan - Plan Referrals: Veto Rosa Jr, MD [Primary Care Provider] -
[2017-11-17] MEDS: Pregabalin 25 MG CAPSULE PO SCH ×2 (09:08→21:06)
[2017-11-17] MEDS: Acetaminophen 325 MG TABLET PO PRN (09:08)
--- NOTE | 2017-11-18 07:06 | Electrocardiograph Report ---
[address] [place], [place] [address] Test Date: 2017-11-16 Pat Name: Aleksandra Fischer Department: 103 Room: 2A44 Gender: F Vice President Of Procurement: [facility] : 1930 Requested By: Myrna Luna Order Number: [id number] Reading MD: Huang Cuevas Measurements Intervals [place] Rate: 48 P: 9 GA: 139 QRS: 5 QRSD: 93 T: 65 QT: 482 QTc: 448 Interpretive Statements SINUS BRADYCARDIA ANTERIOR ISCHEMIA Electronically Signed On 11-18-2017 7:04:34 EDT by Huang Cuevas
[2017-11-18 08:31] LABS: Basophils % 0.4 %; Eosinophils # 0.1 K/mcL (0.0-0.6); Eosinophils % 0.9 %; Hematocrit 28.4 % (35.3-44.9); Hemoglobin 9.1 g/dL (11.5-15.4); Immature Granulocytes % 0.7 % (0-4); Lymphocytes # 1.6 K/mcL (0.6-4.6); Lymphocytes % 22.4 %; Mean Corpuscular Hemoglobin 31.8 pg (28.0-33.3); Mean Corpuscular Volume 99.3 fL (83.0-100.0); Mean Platelet Volume 11.7 fL (9.4-12.4); Monocytes # 0.7 K/mcL (0.0-1.3); Monocytes % 9.3 %; Neutrophils # 4.6 K/mcL (1.6-8.9); Platelet Count 155 K/mcL (140-400); Red Blood Count 2.86 M/mcL (3.82-4.97); Red Cell Distribution Width 13.8 % (11.5-14.5); Segmented Neutrophils % 66.3 %
[2017-11-18 08:38] LABS: Alanine Aminotransferase 13 Units/L (7-52); Albumin 3.5 g/dL (3.5-5.7); Albumin/Globulin Ratio 1.5 (1.1-2.2); Alkaline Phosphatase 76 Units/L (34-104); Aspartate Amino Transferase 14 Units/L (13-39); BUN/Creatinine Ratio 26 (6-26); Bilirubin,Total 0.5 mg/dL (0.3-1.0); Blood Urea Nitrogen 18 mg/dL (8-23); Calcium 8.5 mg/dL (8.6-10.3); Carbon Dioxide 25 mEq/L (23-29); Chloride 109 mEq/L (98-107); Globulin 2.3 g/dL (2.4-3.5); Glucose 101 mg/dL (70-105); Osmolality,Calculated 294 (280-300); Potassium 4.1 mEq/L (3.5-5.1); Sodium 141 mEq/L (136-145); Total Protein 5.8 g/dL (6.4-8.9); eGFR For African Americans > 60 (> 60); eGFR For Non-African Americans > 60 (> 60)
--- NOTE | 2017-11-18 10:45 | Discharge Summary ---
- NOTES TO OUTPATIENT PROVIDER Notes to Outpatient Provider: s/p fall with posterior scalp and left anterior knee subcutaneous hematoma; has lenny over scalp laceration; decreased Lyrica dose Orders not resulted at time of discharge: Pending orders 11/19/17 04:00 Complete Blood Count [HEME] AM 0400 Comprehensive Metabolic Panel AM 0400 Date of Encounter: 11/18/17 Time of Encounter: 10:42 - Discharge Diagnosis (1) Fall Priority: Primary Status: Acute Qualifiers: Encounter type: initial encounter Qualified Code(s): W19.XXXA - Unspecified fall, initial encounter (2) Elevated troponin Priority: Primary Status: Resolved (3) Traumatic hematoma of left knee Priority: Primary Status: Acute Qualifiers: Encounter type: initial encounter Qualified Code(s): S80.02XA - Contusion of left knee, initial encounter (4) Scalp hematoma Priority: Primary Status: Acute Qualifiers: Encounter type: initial encounter Qualified Code(s): S00.03XA - Contusion of scalp, initial encounter (5) Bradycardia Priority: Primary Status: Resolved (6) HLD (hyperlipidemia) Priority: Secondary Status: Chronic Qualifiers: Hyperlipidemia type: unspecified Qualified Code(s): E78.5 - Hyperlipidemia , unspecified (7) GERD (gastroesophageal reflux disease) Priority: Secondary Status: Chronic Qualifiers: Esophagitis presence: esophagitis presence not specified Qualified Code(s) : K21.9 - Gastro-esophageal reflux disease without esophagitis (8) Melanoma Priority: Secondary Status: Chronic Qualifiers: Melanoma location: face excluding eyelid, nose, lip, and ear Qualified Code (s): C43.30 - Malignant melanoma of unspecified part of face (9) Anemia Priority: Secondary Status: Chronic Qualifiers: Anemia type: unspecified type Qualified Code(s): D64.9 - Anemia, unspecified (10) Leukocytosis Priority: Primary Status: Resolved Qualifiers: Leukocytosis type: unspecified Qualified Code(s): D72.829 - Elevated white blood cell count, unspecified Hospital course: Ms. Fischer is a 87 year old female with the above medical problems, who was admitted secondary to a mechanical fall and noted to have posterior scalp laceration and the superficial subcutaneous hematoma over anterior Left knee. She received lenny to her scalp laceration in the ER. Hip and pelvis x-ray and CT showed no evidence of acute trauma or fracture. CT angiogram of chest showed no acute abnormality. She was noted to have asymptomatic bradycardia, which gradually improved. Echocardiogram showed preserved ejection fraction, mild LV diastolic dysfunction. Bilateral carotid Doppler showed nonstenotic plaque. Physical and occupational therapy evaluation recommended home health services. Referral is completed. Patient is currently medically stable for discharge with outpatient follow-up. Discharge discussed with: patient, nurse - Time Spent with Patient Total time spent providing and/or coordinating discharge services: Greater than 30 minutes (40 min) - Discharge Medications Home Medications: Atorvastatin [Lipitor] 40 mg PO DAILY 11/16/17 [History] Omeprazole [PriLOSEC] 20 mg PO DAILY 11/16/17 [History] Acetaminophen [Tylenol] 650 mg PO Q6HR PRN tablet 11/18/17 [Rx] Pregabalin [Lyrica] 25 mg PO BID 15 Days #30 capsule 11/18/17 [Rx] Allergies/Adverse Reactions: 3 Allergy/AdvReac Type Severity Reaction Status Date / Time No Known Allergies Allergy Verified 11/16/17 07:43 Date of admission: 11/16/17 13:33 Primary care physician: Veto Rosa Jr, MD Consults: 11/16/17 13:56 Consult to Occupational Therapy [CONS] Routine Comment: Evaluate, develop and implement POC Reason for Consult: Patient had fall today down four steps. Please assess patient for ambulation strength, stability, safety, and possible home assistive/rehabilitation needs for post-discharge planning. Does patient have active BEDREST order?: Yes Is patient medically & hemodynamically stable?: Yes Patient assessed for mobility or mobilized this visit?: No Consult to Car Restorer [CONS] Routine Reason for SW Consult: Please assess patient for possible home needs for post -discharge planning. 11/16/17 13:57 Consult to Physical Therapy [CONS] Routine Comment: Evaluate, develop and implement POC Reason for Consult: Patient had fall today down four steps. Please assess patient for ambulation strength, stability, safety, and possible home assistive/rehabilitation needs for post-discharge planning. Does patient have active BEDREST order?: Yes Is patient medically & hemodynamically stable?: Yes Patient assessed for mobility or mobilized this visit?: No 11/16/17 14:03 Consult to Wound Care [CONS] Routine Reason for Consult: Patient sustained fall today injuring her head and left knee. Please make recommendations for daily wound care. Call Completed: No Discharging clinician: Ilda Su Anticipated date of discharge: 11/18/17 - Constitutional Vitals: Temp Pulse Resp BP Pulse Ox 98.4 F 60 20 96/61 96 11/18/17 09:24 11/18/17 09:24 11/18/17 09:24 11/18/17 09:24 11/18/17 09:24 General appearance: Present: cooperative, A&O X 3, answers questions appropriately - Cardiovascular Cardiovascular exam: Present: RRR, +S1, +S2. Absent: diastolic murmur, gallop, rubs, systolic murmur - Patient Status Disposition: Home, Self-Care Condition: Fair Functional capacity at discharge: uses cane/walker Overall status at discharge: patient is progressing back to baseline - Discharge Instructions Instructions: Anemia (GEN), Fall Prevention (DC) Follow Up With: Veto Rosa Jr, MD [Primary Care Provider] - 11/23/17 10:00 am (Please follow up as schedule...) Additional Instructions: F/up with PCP in 1-2 weeks - Diet and Activity Activity: as per physical therapy Diet: low fat, low cholesterol, low salt diet - VTE Documentation of Mechanical Device: Intermittent pneumatic compression device
--- NOTE | 2017-11-18 10:49 | Physician Discharge Referral ---
Home Health/Hosp Referral Info Transfer to: Home Health Attending Provider: Ilda Su Provider in Charge Post Discharge: PCP - Diagnosis (1) Fall Priority: Primary Status: Acute (2) Elevated troponin Priority: Primary Status: Resolved (3) Traumatic hematoma of left knee Priority: Primary Status: Acute (4) Scalp hematoma Priority: Primary Status: Acute (5) Bradycardia Priority: Primary Status: Resolved (6) HLD (hyperlipidemia) Priority: Secondary Status: Chronic (7) GERD (gastroesophageal reflux disease) Priority: Secondary Status: Chronic (8) Melanoma Priority: Secondary Status: Chronic (9) Anemia Priority: Secondary Status: Chronic (10) Leukocytosis Priority: Primary Status: Resolved - Respiratory Orders Smoking Cessation: Smoking cessation has been advised. For more information, call the [employer] Tobacco Quit Line at 0-209-GVKTNOW. - Diet/Nutrition Diet/Nutrition Orders: Cardiac - Activity Activity Orders: Ambulate - Services Needed Following services are medically necessary services: Nursing, Physical Therapy, Occupational Therapy - Transfer Medications Prescriptions: Pregabalin [Lyrica] 25 mg PO BID 15 Days #30 capsule Home Medications: Atorvastatin [Lipitor] 40 mg PO DAILY 11/16/17 [History] Omeprazole [PriLOSEC] 20 mg PO DAILY 11/16/17 [History] Acetaminophen [Tylenol] 650 mg PO Q6HR PRN tablet 11/18/17 [Rx] Pregabalin [Lyrica] 25 mg PO BID 15 Days #30 capsule 11/18/17 [Rx] Allergies/Adverse Reactions: 3 Allergy/AdvReac Type Severity Reaction Status Date / Time No Known Allergies Allergy Verified 11/16/17 07:43 Certification: Further, I certify that my clinical findings support that this patient is homebound (i.e. absences from home require considerable and taxing effort and are for medical reasons or yazdanism services or infrequently or short duration when for other reasons) because: Homebound Reason: Patient requires assistance of a person or device to safely leave home Attestation: My signature below is to certify that this patient is under my care and that I, or nurse practitioner, or a physician's assistant statistician working with me, has a face-to -face encounter with this patient.
[2017-11-18] MEDS: Pregabalin 25 MG CAPSULE PO SCH (11:04)
[2017-11-18 11:24] VITALS: BP 110/57
== END 2017-11-18 15:48 | disposition home or self-care (01) | DRG 605 ==
LOC: EMEROO 07:30 → 2ANU 07:30 → SUATTDRO 13:33 → 2ANU 14:15
PROVIDERS: ADMIT Hospitalist; ATTEND Internal Medicine